=== PATIENT | male | born 1950 | race Caucasian/White ===

== ENCOUNTER 2018-12-13 16:12 | Emergency (ER) | payer MEDICARE, MEDICAID ==
[2018-12-13] MEDS ORDERED: IPRATROPIUM/ALBUTEROL (0.5MG/3MG) NEB INH ONE (16:23)
[2018-12-13] MEDS ORDERED: PREDNISONE 20 MG TAB PO ONE (18:18)
[2018-12-13] MEDS ORDERED: DOXYCYCLINE HYCLATE 100 MG CAPSULE PO ONE (18:18)
[2018-12-13] MEDS ORDERED: ALBUTEROL SULFATE (0.083%) 2.5 MG/3 ML NEB INH ONE (18:21)
--- NOTE | 2018-12-13 18:25 | Emergency Department Record ---
History of Present Illness - General Chief Complaint: Cough Stated Complaint: "I think I have pneumonia" Time Seen by Provider: 12/13/18 18:11 Source: Patient Mode of Arrival: Ambulatory Limitations: No limitations - History of Present Illness Initial Comments: The patient is here due to a productive cough with a ST for almost 2 weeks. He has had mild SOB but denies any CP, fever, chills, or blood in the sputum. The patient has an extensive hx of tobacco use but no longer smokes regularly. He has had a thoracotomy for lung CA. MD Complaint: Cough, Nasal congestion, Rhinorrhea, Sore throat Onset/Timin -: Week(s) Consistency: Intermittent, Getting worse - Related Data Previous Rx's Medication Instructions Recorded Ipratropium/Albuterol Sulfate 1 - 2 puff IH QID #1 inh 02/17/16 [Combivent] Albuterol Sulfate [Proair Hfa] 2 puff IH QID PRN #1 inhaler 12/13/18 Doxycycline Monohydrate [Mondoxyne 100 mg PO BID 7 Days #14 capsule 12/13/18 Nl] Prednisone [Prednisone 20Mg] 40 mg PO DAILY #10 tab 12/13/18 Allergies Allergy/AdvReac Type Severity Reaction Status Date / Time lidocaine AdvReac HYPERSENSIT Verified 12/13/18 16:21 IVITY Travel Screening - Travel/Exposure Within Last 30 Days Have you traveled within the last 30 days?: No - Travel/Exposure Within Last Year Have you traveled outside the [place] in the last year?: No - Additonal Travel Details Have you been exposed to anyone with a communicable illness?: No - Travel Symptoms Symptom Screening: None Review of Systems Constitutional: Reports: Malaise. Denies: Chills, Fever Eyes: Denies: Eye discharge ENT: Reports: Congestion Respiratory: Reports: Cough, Dyspnea. Denies: Hemoptysis, Wheezes Cardiovascular: Denies: Arrhythmia, Chest pain Endocrine: Reports: Fatigue Gastrointestinal: Denies: Nausea Genitourinary: Denies: Dysuria Musculoskeletal: Denies: Back pain Skin: Denies: Bruising Past Medical History - SOCIAL HISTORY Smoking Status: Current every day smoker Alcohol Use: None Drug Use: Occasional Drug Use Detail:: Marijuana - RESPIRATORY Hx Respiratory Disorders: Yes Hx COPD: Yes - CARDIOVASCULAR Hx Cardio Disorders: No - NEURO Hx Neuro Disorders: No - GI Hx GI Disorders: No - Hx Genitourinary Disorders: No - ENDOCRINE Hx Endocrine Disorders: No Hx Diabetes: No Hx Thyroid Disease: No - MUSCULOSKELETAL Hx Musculoskeletal Disorders: Yes - PSYCH Hx Psych Problems: Yes Hx Anxiety: Yes Hx Depression: Yes - HEMATOLOGY/ONCOLOGY Hx Hematology/Oncology Disorders: Yes Hx Blood Disorders: Yes Hx Chemotherapy: Yes Hx Radiation Therapy: Yes Family Medical History Any Significant Family History?: No Physical Exam - General General Appearance: Alert, Oriented x3, Cooperative, No acute distress (The patient is speaking in full sentences with no difficulty. There are no retractions or accessory muscle use.) - Head Head exam: Atraumatic, Normocephalic, Normal inspection - Eye Eye exam: Normal appearance, PERRL - ENT Throat exam: Normal inspection. negative: Tonsillar erythema, Tonsillar exudate - Neck Neck exam: Normal inspection, Full ROM. negative: Tenderness - Respiratory Respiratory exam: Decreased breath sounds, Wheezes (minimally in the lower lobes.). negative: Normal lung sounds bilaterally - Cardiovascular Cardiovascular Exam: Regular rate, Normal rhythm, Normal heart sounds - GI/Abdominal GI/Abdominal exam: Soft, Normal bowel sounds. negative: Tenderness - Extremities Extremities exam: Normal inspection, Full ROM, Normal capillary refill. negative: Tenderness - Neurological Neurological exam: Alert, Normal gait, Oriented X3. negative: Abnormal gait, Motor sensory deficit - Psychiatric Psychiatric exam: negative: Anxious Course Vital Signs 12/13/18 12/13/18 12/13/18 16:23 16:28 17:25 Temperature 97.6 F Pulse Rate 100 H 104 H Pulse Rate [ 107 H Pulse Ox Probe] Respiratory 22 20 20 Rate Blood Pressure 168/102 Blood Pressure 161/106 [Left Arm] Pulse Ox 94 L 94 L 92 L 12/13/18 18:00 Temperature Pulse Rate Pulse Rate [ 75 Pulse Ox Probe] Respiratory 22 Rate Blood Pressure Blood Pressure 148/103 [Left Arm] Pulse Ox - Reevaluation(s) Reevaluation #1: The patient is feeling much better after the 2nd albuterol treatment. He is speaking in full sentences and is up walking with no difficulty and no SOB. On exam his lungs have improved aeration with no wheezing. I did explain to the patient the need for F/U with his PCP. 12/13/18 18:41 Medical Decision Making - Data Complexity MDM Data: X-Ray Ordered and/or Reviewed - Radiology Data Radiology results: Report reviewed (CXR: subtle bilateral early middly lobe infiltrates.) Disposition Disposition: Discharge Clinical Impression: Pneumonia Qualifiers: Pneumonia type: due to unspecified organism Laterality: unspecified laterality Lung location: unspecified part of lung Qualified Code(s): J18.9 - Pneumonia, unspecified organism Disposition: Home, Self-Care Condition: (2) Stable Instructions: Pneumonitis (ED) Additional Instructions: Please continue your oral antibiotics and Prednisone as directed and continue your inhallers. Please see your family doctor later this week for recheck. Return to the ER for any worsening symptoms, any SOB, fever, or dyspnea. Prescriptions: Doxycycline Monohydrate [Mondoxyne Nl] 100 mg PO BID 7 Days #14 capsule Prednisone [Prednisone 20Mg] 40 mg PO DAILY #10 tab Albuterol Sulfate [Proair Hfa] 2 puff IH QID PRN #1 inhaler PRN Reason: Cough And Difficulty Breathing Forms: Patient Portal Access Time of Disposition: 18:44 Quality - Quality Measures Quality Measures: N/A - Blood Pressure Screening View Details: Yes Does Patient Have Any of the Following: No Blood Pressure Classification: Hypertensive Reading Systolic Measurement: 149 Diastolic Measurement: 101 Screening for High Blood Pressure: < First Hypertensive BP, F/U Documented > [G8950] First Hypertensive Follow-up Interventions: Referral to alternative/primary care provider.
--- NOTE | 2018-12-14 09:45 | RADIOLOGY REPORT ---
EXAM: CHEST, TWO VIEWS HISTORY: COUGH FOR THE PAST TWO WEEKS. TECHNIQUE: PA and lateral upright views of the chest were obtained. Comparison: 02/17/16. FINDINGS: The heart is normal in size. Surgical clips are present within the right hilum. The mediastinum and pulmonary vasculature are normal. The lungs are hyperinflated consistent with COPD. There are patchy infiltrates within the mid lung ding bilaterally, right greater than left. These have a slightly nodular configuration and follow-up is recommended to confirm clearing. There is no pneumothorax or visible effusion. The bones appear intact. IMPRESSION: 1. PATCHY INFILTRATES WITHIN THE MID LUNG DING BILATERALLY, RIGHT GREATER THAN LEFT. FOLLOW-UP IS RECOMMENDED TO CONFIRM CLEARING. 2. COPD. JOB NUMBER: [id number] [facility]
== END 2018-12-13 18:51 | disposition home or self-care (01) ==
LOC: ER 16:12
DX: J18.9 Pneumonia, unspecified organism (principal); R06.02 Shortness of breath; J44.9 Chronic obstructive pulmonary disease, unspecified; F17.210 Nicotine dependence, cigarettes, uncomplicated; Z85.118 Personal history of other malignant neoplasm of bronchus and lung
CPT/HCPCS: 99283; 99284; 71046; 94640 ×2; J7512; J7613

== ENCOUNTER 2019-02-25 15:12 | Emergency (ER) | payer MEDICARE, MEDICAID ==
[2019-02-25] MEDS ORDERED: IPRATROPIUM/ALBUTEROL (0.5MG/3MG) NEB INH ONE (15:53)
[2019-02-25] MEDS ORDERED: METHYLPREDNISOLONE PF 125MG/VIAL IVP ONE (15:53)
[2019-02-25 16:14] LABS: ABSOLUTE NEUTROPHIL COUNT 5.12; HEMATOCRIT 46.5 % (42.0-52.0); HEMOGLOBIN 14.8 gm/dl (14.0-18.0); MEAN CELL VOLUME 89.8 fl (81-97); MEAN CORPUSCULAR HEMOGLOBIN 28.6 pg (27-33); MEAN CORPUSCULAR HGB CONC 31.8 g/dl (32-36); PLATELET COUNT 243 K/uL (130-400); RED BLOOD COUNT 5.18 M/uL (4.40-5.70); RED CELL DISTRIBUTION WIDTH 15.3 % (11.5-14.5)
--- NOTE | 2019-02-25 16:17 | Emergency Department Record ---
History of Present Illness - General Chief Complaint: Shortness of breath Stated Complaint: SOB Time Seen by Provider: 02/25/19 15:53 Source: Patient Mode of Arrival: Ambulatory Limitations: No limitations - History of Present Illness Initial Comments: Pt to the ED for issues with difficulty breathing. Pt is a smoker who smokes "occasional cigarettes and marijuana medically". He has never been dx with COPD. Pt states if he walks to the bathroom and back he has severe THOR and it takes him 10-15 minutes to recover. He uses his nebulizer with albuterol and that helps. Pt has hx of lung cancer in 1999 with right upper lobe resection and follow up radiation. He did well with that. 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 He is in remission. He denies anterior CP with symptoms, no nausea, no fever. He has non productive cough. Pt has not seen a doctor for this issue. -: Unknown Severity scale (1-10): 3 Quality: Aching Known History Of: Other - Related Data Previous Rx's Medication Instructions Recorded Albuterol Sulfate [Proair Hfa] 2 puff IH QID PRN #1 inhaler 12/13/18 Doxycycline Monohydrate 100 mg PO BID 7 Days #14 capsule 02/25/19 Ipratropium/Albuterol Sulfate 1 - 2 puff IH QID #1 inh 02/25/19 [Combivent] Prednisone [Prednisone 20Mg] 20 mg PO DAILY 6 Days #9 tab 02/25/19 Allergies Allergy/AdvReac Type Severity Reaction Status Date / Time lidocaine AdvReac HYPERSENSIT Verified 12/13/18 16:21 IVITY Travel Screening - Travel/Exposure Within Last 30 Days Have you traveled within the last 30 days?: No - Travel/Exposure Within Last Year Have you traveled outside the [place] in the last year?: No - Additonal Travel Details Have you been exposed to anyone with a communicable illness?: No - Travel Symptoms Symptom Screening: None Review of Systems Constitutional: Denies: Chills, Fever, Weakness Eyes: Denies: Eye discharge, Photophobia ENT: Reports: Congestion. Denies: Ear pain, Throat pain Respiratory: Reports: As per HPI, Cough, Dyspnea, Wheezes. Denies: Stridor Cardiovascular: Reports: Dyspnea on exertion. Denies: Arrhythmia, Chest pain, Syncope Endocrine: Reports: Fatigue. Denies: Polydipsia Gastrointestinal: Denies: Abdominal pain, Diarrhea, Melena, Nausea, Vomiting Musculoskeletal: Denies: Arthralgia, Back pain Skin: Denies: Bruising Neurological: Denies: Abnormal gait, Headache, Weakness Psychiatric: Denies: Anxiety Hematological/Lymphatic: Denies: Anemia Past Medical History - SOCIAL HISTORY Smoking Status: Light tobacco smoker (<10/day) Alcohol Use: None Drug Use: Rare Drug Use Detail:: Marijuana - RESPIRATORY Hx Respiratory Disorders: Yes Hx COPD: Yes - CARDIOVASCULAR Hx Cardio Disorders: No - NEURO Hx Neuro Disorders: No - GI Hx GI Disorders: No - Hx Genitourinary Disorders: No - ENDOCRINE Hx Endocrine Disorders: No Hx Diabetes: No Hx Thyroid Disease: No - MUSCULOSKELETAL Hx Musculoskeletal Disorders: Yes - PSYCH Hx Psych Problems: Yes Hx Anxiety: Yes Hx Depression: Yes - HEMATOLOGY/ONCOLOGY Hx Hematology/Oncology Disorders: Yes Hx Blood Disorders: Yes Hx Chemotherapy: Yes Hx Radiation Therapy: Yes Comment:: leukiemia Family Medical History Any Significant Family History?: No Physical Exam - General General Appearance: Alert, Oriented x3, Cooperative, No acute distress - Head Head exam: Atraumatic - Eye Eye exam: Normal appearance, PERRL - ENT ENT exam: Normal exam, Mucous membranes moist, Normal external ear exam, Normal orophraynx, TM's normal bilaterally - Neck Neck exam: Normal inspection, Full ROM. negative: Tenderness - Respiratory Respiratory exam: Decreased breath sounds, Prolonged expiratory. negative: Accessory muscle use, Chest wall tenderness, Respiratory distress, Rhonchi, Wheezes - Cardiovascular Cardiovascular Exam: Regular rate, Normal rhythm, Normal heart sounds. negative: Tachycardia Peripheral Pulses: 2+: Radial (R), Radial (L) - GI/Abdominal GI/Abdominal exam: Soft, Normal bowel sounds. negative: Tenderness - Extremities Extremities exam: Normal inspection, Full ROM, Normal capillary refill. negative: Tenderness - Back Back exam: Reports: Normal inspection, Full ROM. Denies: Muscle spasm, Rash noted, Tenderness - Neurological Neurological exam: Alert, Normal gait, Oriented X3 - Psychiatric Psychiatric exam: Normal affect, Normal mood - Skin Skin exam: Normal color. negative: Rash Course Vital Signs 02/25/19 15:15 Temperature 98.4 F Pulse Rate 84 Respiratory 20 Rate Blood Pressure 139/84 Pulse Ox 97 - Reevaluation(s) Reevaluation #1: 02/25/19 16:16 seen and exam. IV steroids and duoneb neb. CXR/EKG/Labs ordered. Pt at first did not want testing or work up...just to feel better. He agrees after discussion. Reevaluation #2: 02/25/19 16:59 Much better with treatments. Discussed care and stopping smoking. 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 Procedures - EKG Initial Date: 02/25/19 Time: 16:17 EKG: Abnormal EKG EKG Detail: SR 89 with L axsis. No ST elevations. Medical Decision Making - Lab Data Result diagrams: 02/25/19 16:05 02/25/19 16:05 Disposition Disposition: Discharge Clinical Impression: COPD exacerbation, Chronic leukemia Disposition: Home, Self-Care Condition: (2) Stable Instructions: COPD (Chronic Obstructive Pulmonary Disease) (ED), How to Stop Smoking (ED) Additional Instructions: Use inhaler as instructed. Take steroids and antibiotic as instructed. STOP SMOKING> See your Family Doctor in 2-3 days. Return to the ED as needed. Prescriptions: Ipratropium/Albuterol Sulfate [Combivent] 1 - 2 puff IH QID #1 inh Doxycycline Monohydrate 100 mg PO BID 7 Days #14 capsule Prednisone [Prednisone 20Mg] 20 mg PO DAILY 6 Days #9 tab Forms: Patient Portal Access Quality - Quality Measures Quality Measures: N/A - Blood Pressure Screening Does Patient Have Any of the Following: No Blood Pressure Classification: Pre-Hypertensive BP Reading Systolic Measurement: 139 Diastolic Measurement: 84 Screening for High Blood Pressure: < Pre-Hypertensive BP, F/U Documented > [G8950] Pre-Hypertensive Follow-up Interventions: Follow-up with rescreen every year.
[2019-02-25 16:20] LABS: WHITE BLOOD COUNT W/O DIFF 22.1 K/uL (4.2-12.2)
[2019-02-25 16:27] LABS: BLOOD UREA NITROGEN 13 mg/dL (8-23); CREATININE 1.1 mg/dL (0.7-1.2); EST GLOMERULAR FILTRATION RATE > 60 mL/min
[2019-02-25 16:30] LABS: GLUCOSE,RANDOM 96 mg/dL (74-109)
[2019-02-25 16:32] LABS: PLATELET ESTIMATE NORMAL (NORMAL)
--- NOTE | 2019-02-26 14:17 | RADIOLOGY REPORT ---
EXAM: CHEST, TWO VIEWS HISTORY: RIGHT LUNG CANCER. DIFFICULTY BREATHING. TECHNIQUE: Two views of the chest are obtained. Comparison: 12/13/18. FINDINGS: The heart is of normal size. The lungs are clear of any acute infiltrate, pleural effusion or pneumothorax. No indication of any new or enlarging pulmonary nodule. Skeletal structures show no suspicious rib findings or clavicle findings. The thoracic spine is unremarkable. The sternum is unremarkable. IMPRESSION: NO SIGN OF ACUTE CHEST PATHOLOGY. JOB NUMBER: [id number] [facility]
== END 2019-02-25 17:32 | disposition home or self-care (01) ==
LOC: ER 15:12
DX: J44.1 Chronic obstructive pulmonary disease with (acute) exacerbation (principal); F17.210 Nicotine dependence, cigarettes, uncomplicated; C91.11 Chronic lymphocytic leukemia of B-cell type in remission; Z85.118 Personal history of other malignant neoplasm of bronchus and lung
CPT/HCPCS: 71046; 80048; 85027; 85379; 93005; 93010; 94640; 96374; 99284; J2930

== ENCOUNTER 2019-05-04 09:24 | Emergency (ER) | payer MEDICARE, MEDICAID ==
[2019-05-04] MEDS ORDERED: IPRATROPIUM/ALBUTEROL (0.5MG/3MG) NEB INH ONE (09:43)
[2019-05-04] MEDS ORDERED: PREDNISONE 20 MG TAB PO ONE (09:47)
--- NOTE | 2019-05-04 09:49 | Emergency Department Record ---
History of Present Illness - General Chief Complaint: Shortness of breath Stated Complaint: THOR Time Seen by Provider: 05/04/19 09:41 Source: Patient Mode of Arrival: Ambulatory Limitations: No limitations - History of Present Illness Initial Comments: Pt to ED with one day of THOR at home. Pt is know to have COPD and "quit smoking 3 months ago". No fever, +cough that is non productive. He notes wheezing. Pt used his Combivent and albuterol inhalers with brief relief. Not taking Prednisone at this time. No CP, edema of legs, AHUMADA, weakness. No prior treatment. Onset/Timin -: Days(s) Radiation: Other Severity scale (1-10): 4 Quality: Other Consistency: Constant Improves With: Nothing Worsens With: Nothing Known History Of: COPD Associated Symptoms: Denies other symptoms Treatments Prior to Arrival: Bronchodilator - Related Data Home Oxygen Therapy: No Home Medications Medication Instructions Recorded Confirmed Last Taken Albuterol Sulfate [Ventolin Hfa] 1 puff IH ASDIR 05/04/19 05/04/19 Unknown Previous Rx's Medication Instructions Recorded Azithromycin [Zithromax Tri-Karan] 500 mg PO DAILY 3 Days #6 tablet 05/04/19 Ipratropium/Albuterol Sulfate 1 - 2 puff IH QID 10 Days #1 inh 05/04/19 [Combivent] Prednisone [Prednisone 20Mg] 40 mg PO DAILY 5 Days #10 tab 05/04/19 Allergies Allergy/AdvReac Type Severity Reaction Status Date / Time lidocaine AdvReac HYPERSENSIT Unverified 04/13/19 14:03 IVITY Travel Screening - Travel/Exposure Within Last 30 Days Have you traveled within the last 30 days?: No Review of Systems Constitutional: Denies: Chills, Fever, Malaise, Weakness Eyes: Denies: Eye discharge, Photophobia ENT: Denies: Congestion, Ear pain, Throat pain Respiratory: Reports: As per HPI, Cough, Wheezes. Denies: Dyspnea, Hemoptysis Cardiovascular: Denies: Arrhythmia, Chest pain, Palpitations, Syncope Endocrine: Denies: Fatigue Gastrointestinal: Denies: Abdominal pain, Diarrhea, Nausea, Vomiting Musculoskeletal: Denies: Arthralgia, Back pain Skin: Denies: Bruising, Rash Neurological: Denies: Confusion, Headache, Tingling Psychiatric: Denies: Anxiety, Suicidal thoughts Hematological/Lymphatic: Denies: Anemia Past Medical History - SOCIAL HISTORY Smoking Status: Light tobacco smoker (<10/day) - RESPIRATORY Hx Respiratory Disorders: Yes Hx COPD: Yes - CARDIOVASCULAR Hx Cardio Disorders: No - NEURO Hx Neuro Disorders: No - GI Hx GI Disorders: No - Hx Genitourinary Disorders: No - ENDOCRINE Hx Endocrine Disorders: No Hx Diabetes: No Hx Thyroid Disease: No - MUSCULOSKELETAL Hx Musculoskeletal Disorders: Yes - PSYCH Hx Psych Problems: Yes Hx Anxiety: Yes Hx Depression: Yes - HEMATOLOGY/ONCOLOGY Hx Hematology/Oncology Disorders: Yes Hx Blood Disorders: Yes Hx Chemotherapy: Yes Hx Radiation Therapy: Yes Comment:: leukiemia Family Medical History Any Significant Family History?: No Physical Exam - General General Appearance: Alert, Oriented x3, Cooperative, Mild distress - Head Head exam: Atraumatic - Eye Eye exam: Normal appearance, PERRL, EOMI - ENT ENT exam: Mucous membranes moist, Normal orophraynx Ear exam: Normal external inspection Nasal Exam: Normal inspection Mouth exam: Normal external inspection - Neck Neck exam: Normal inspection, Full ROM. negative: Lymphadenopathy, Tenderness - Respiratory Respiratory exam: Decreased breath sounds, Prolonged expiratory, Rhonchi, Wheezes. negative: Chest wall tenderness, Rales, Respiratory distress - Cardiovascular Cardiovascular Exam: Regular rate, Normal rhythm. negative: Tachycardia Peripheral Pulses: 2+: Radial (R), Radial (L) - GI/Abdominal GI/Abdominal exam: Soft, Normal bowel sounds. negative: Guarding, Rebound, Tenderness - Extremities Extremities exam: Normal inspection, Full ROM. negative: Calf tenderness, Pedal edema, Tenderness - Back Back exam: Denies: Paraspinal tenderness - Neurological Neurological exam: Alert, Normal gait, Oriented X3 - Psychiatric Psychiatric exam: Normal affect, Normal mood - Skin Skin exam: Normal color. negative: Cyanosis, Rash Course Vital Signs 05/04/19 09:27 Temperature 98.1 F Pulse Rate 96 H Respiratory 20 Rate Blood Pressure 162/107 Pulse Ox 98 - Reevaluation(s) Reevaluation #1: 05/04/19 09:48 Seen with THOR but not in distress. CXR and treatments in ED. Reevaluation #2: 05/04/19 10:38 Improved with RT in ED. Lungs with good exchange, no wheeze. CXR not acute. Home with meds and inhaler. Steroids and Zithromax. Instructed on use of spacer by RT. Medical Decision Making - Data Complexity MDM Data: X-Ray Ordered and/or Reviewed, Independent Visualization of Image, Tracing, or Specimen - Radiology Data Radiology results: Image reviewed -: Radiology Exam Interpreted by Myself No acute infiltrate or pneumothorax Disposition Disposition: Discharge Clinical Impression: COPD exacerbation, Cough Disposition: Home, Self-Care Condition: (2) Stable Instructions: COPD (Chronic Obstructive Pulmonary Disease) (ED) Additional Instructions: Use your inhalers as instructed with spacer! See you family doctor as scheduled. Return to the ED at any time if worse Prescriptions: Ipratropium/Albuterol Sulfate [Combivent] 1 - 2 puff IH QID 10 Days #1 inh Prednisone [Prednisone 20Mg] 40 mg PO DAILY 5 Days #10 tab Azithromycin [Zithromax Tri-Karan] 500 mg PO DAILY 3 Days #6 tablet Forms: Patient Portal Access Time of Disposition: 10:37 Quality - Quality Measures Quality Measures: N/A - Blood Pressure Screening Does Patient Have Any of the Following: No Blood Pressure Classification: Hypertensive Reading Systolic Measurement: 162 Diastolic Measurement: 107 Screening for High Blood Pressure: < Pre-Hypertensive BP, F/U Documented > [G8950] Pre-Hypertensive Follow-up Interventions: Follow-up with rescreen every year.
[2019-05-05] MEDS ORDERED: PREDNISONE 20 MG TAB PO SCH (08:00)
--- NOTE | 2019-05-06 08:53 | RADIOLOGY REPORT ---
EXAM: CHEST, TWO VIEWS HISTORY: RIGHT SIDED CHEST PAIN FOR A FEW WEEKS, DIFFICULTY IN BREATHING. TECHNIQUE: Two views of the chest were obtained. Comparison: Prior chest x-ray 04/02/19. FINDINGS: The cardiomediastinal silhouette appears stable. Mild hyperaeration changes are present. Stable mild blunting of the right greater than left costophrenic angles are present. No acute consolidation. Chronic appearing interstitial markings. No pneumothorax is identified. Surgical clips are noted overlying the region of the right apex. Mild right apical pleural thickening present. Stable appearing small nodule left lateral aortic knob. IMPRESSION: 1. HYPERAERATION CHANGES SIMILAR TO PRIOR, CHRONIC CHANGES UNCHANGED. 2. NO ACUTE CARDIOPULMONARY PROCESS IDENTIFIED. JOB NUMBER: [id number] [facility]
== END 2019-05-04 10:49 | disposition home or self-care (01) ==
LOC: ER 09:24
DX: J44.1 Chronic obstructive pulmonary disease with (acute) exacerbation (principal); R06.00 Dyspnea, unspecified; F17.210 Nicotine dependence, cigarettes, uncomplicated
CPT/HCPCS: 71046; 94640; 99284; J7512

== ENCOUNTER 2019-06-08 15:56 | Emergency (ER) | payer MEDICARE, MEDICAID ==
[2019-06-08] MEDS ORDERED: FUROSEMIDE 20 MG TABLET PO ONE (17:13)
--- NOTE | 2019-06-08 17:35 | Emergency Department Record ---
History of Present Illness - General Chief Complaint: Shortness of breath Stated Complaint: THOR Time Seen by Provider: 06/08/19 16:11 Source: Patient Mode of Arrival: Ambulatory Limitations: No limitations - History of Present Illness Initial Comments: pt was sent here because he has a wbc of 29.6 on a lab ordered yesterday by dr abreu, pulmonology, for possible admission or transfer MD Complaint: Shortness of breath Onset/Timin -: Days(s) Improves With: Nothing Worsens With: Nothing Known History Of: COPD - Related Data Allergies Allergy/AdvReac Type Severity Reaction Status Date / Time lidocaine AdvReac HYPERSENSIT Verified 06/08/19 16:31 IVITY Travel Screening - Travel/Exposure Within Last 30 Days Have you traveled within the last 30 days?: No - Travel/Exposure Within Last Year Have you traveled outside the [place] in the last year?: No - Additonal Travel Details Have you been exposed to anyone with a communicable illness?: No Review of Systems Reviewed: No additional complaints except as noted below Constitutional: Reports: As per HPI. Denies: Chills, Fever, Malaise, Night sweats, Weakness, Weight change Eyes: Reports: As per HPI. Denies: Eye discharge, Eye pain, Photophobia, Vision change ENT: Reports: As per HPI. Denies: Congestion, Dental pain, Ear pain, Epistaxis, Hearing loss, Throat pain Respiratory: Reports: As per HPI. Denies: Cough, Dyspnea, Hemoptysis, Stridor, Wheezes Cardiovascular: Reports: As per HPI. Denies: Arrhythmia, Chest pain, Dyspnea on exertion, Edema, Murmurs, Orthopnea, Palpitations, Paroxysmal nocturnal dyspnea, Rheumatic Fever, Syncope Endocrine: Reports: As per HPI. Denies: Fatigue, Heat or cold intolerance, Polydipsia, Polyuria Gastrointestinal: Reports: As per HPI. Denies: Abdominal pain, Constipation, Diarrhea, Hematemesis, Hematochezia, Melena, Nausea, Vomiting Genitourinary: Reports: As per HPI. Denies: Dysuria, Frequency, Hematuria, Incontinence, Retention, Testicular pain, Testicular mass, Urgency Musculoskeletal: Reports: As per HPI. Denies: Arthralgia, Back pain, Gout, Joint swelling, Myalgia, Neck pain Skin: Reports: As per HPI. Denies: Bruising, Change in color, Change in hair/nails, Lesions, Pruritus, Rash Neurological: Reports: As per HPI. Denies: Abnormal gait, Confusion, Headache, Numbness, Paresthesias, Seizure, Tingling, Tremors, Vertigo, Weakness Psychiatric: Reports: As per HPI. Denies: Anxiety, Auditory hallucinations, Depression, Homicidal thoughts, Suicidal thoughts, Visual hallucinations Hematological/Lymphatic: Reports: As per HPI. Denies: Anemia, Blood Clots, Easy bleeding, Easy bruising, Swollen glands Past Medical History - SOCIAL HISTORY Smoking Status: Former smoker Alcohol Use: None Drug Use: None - RESPIRATORY Hx Respiratory Disorders: Yes Hx COPD: Yes - CARDIOVASCULAR Hx Cardio Disorders: No - NEURO Hx Neuro Disorders: No - GI Hx GI Disorders: No - Hx Genitourinary Disorders: No - ENDOCRINE Hx Endocrine Disorders: No Hx Diabetes: No Hx Thyroid Disease: No - MUSCULOSKELETAL Hx Musculoskeletal Disorders: Yes - PSYCH Hx Psych Problems: Yes Hx Anxiety: Yes Hx Depression: Yes - HEMATOLOGY/ONCOLOGY Hx Hematology/Oncology Disorders: Yes Hx Blood Disorders: Yes Hx Chemotherapy: Yes Hx Radiation Therapy: Yes Comment:: leukiemia Family Medical History Any Significant Family History?: No Physical Exam - General General Appearance: Alert, Oriented x3, Cooperative, No acute distress - Head Head exam: Normal inspection - Eye Eye exam: Normal appearance, PERRL, EOMI Pupils: Normal accommodation - ENT ENT exam: Normal exam, Mucous membranes moist, Normal external ear exam, Normal orophraynx, TM's normal bilaterally Ear exam: Normal external inspection. negative: External canal tenderness Nasal Exam: Normal inspection. negative: Discharge, Sinus tenderness Mouth exam: Normal external inspection, Tongue normal Teeth exam: Normal inspection. negative: Dental caries Throat exam: Normal inspection. negative: Tonsillar erythema, Tonsillar exudate - Neck Neck exam: Normal inspection, Full ROM. negative: Tenderness - Respiratory Respiratory exam: Normal lung sounds bilaterally, Wheezes (slight). negative: Respiratory distress - Cardiovascular Cardiovascular Exam: Regular rate, Normal rhythm, Normal heart sounds - GI/Abdominal GI/Abdominal exam: Soft, Normal bowel sounds. negative: Tenderness - Rectal Rectal exam: Deferred - exam: Deferred - Extremities Extremities exam: Normal inspection, Full ROM, Normal capillary refill, Pedal edema. negative: Tenderness - Back Back exam: Reports: Normal inspection, Full ROM. Denies: Muscle spasm, Rash noted, Tenderness - Neurological Neurological exam: Alert, Normal gait, Oriented X3, Reflexes normal - Psychiatric Psychiatric exam: Normal affect, Normal mood - Skin Skin exam: Dry, Intact, Normal color, Warm Course Vital Signs 06/08/19 16:19 Temperature 97.4 F L Pulse Rate 54 L Respiratory 24 Rate Blood Pressure 149/101 Pulse Ox 96 - Reevaluation(s) Reevaluation #1: 06/08/19 17:33 pt was d/w dr abreu who initially wanted pt transferred to [facility] but then changed his mind when he realized the pt has cll. Disposition Disposition: Discharge Clinical Impression: CLL (chronic lymphocytic leukemia), Pedal edema COPD (chronic obstructive pulmonary disease) Qualifiers: COPD type: unspecified COPD Qualified Code(s): J44.9 - Chronic obstructive pulmonary disease, unspecified Disposition: Home, Self-Care Condition: (1) Good Instructions: COPD (Chronic Obstructive Pulmonary Disease) (ED) Additional Instructions: ffollow up with family doctor. return sooner if worse. follow up with pulmonology and hematology Quality - Quality Measures Quality Measures: N/A - Blood Pressure Screening Does Patient Have Any of the Following: Active Dx of HTN Blood Pressure Classification: Hypertensive Reading Systolic Measurement: 149 Diastolic Measurement: 101 Screening for High Blood Pressure: Patient Exclusion, Hx of HTN [G9744]
== END 2019-06-08 17:44 | disposition home or self-care (01) ==
LOC: ER 15:56
DX: C91.10 Chronic lymphocytic leukemia of B-cell type not having achieved remission (principal); J44.9 Chronic obstructive pulmonary disease, unspecified; R60.9 Edema, unspecified; I10 Essential (primary) hypertension; Z87.891 Personal history of nicotine dependence
CPT/HCPCS: 99284

== ENCOUNTER 2019-06-14 04:48 | Emergency (ER) | payer MEDICARE, MEDICAID ==
[2019-06-14 05:20] LABS: HEMOGLOBIN 13.4 gm/dl (14.0-18.0); MEAN CELL VOLUME 90.3 fl (81-97); MEAN CORPUSCULAR HEMOGLOBIN 27.5 pg (27-33); MEAN CORPUSCULAR HGB CONC 30.5 g/dl (32-36); MEAN PLATELET VOLUME 9.6 fl (7.4-10.4); PLATELET COUNT 278 K/uL (130-400); RED BLOOD COUNT 4.87 M/uL (4.40-5.70); RED CELL DISTRIBUTION WIDTH 16.2 % (11.5-14.5)
--- NOTE | 2019-06-14 05:26 | Emergency Department Record ---
History of Present Illness - General Chief Complaint: Shortness of breath Stated Complaint: SHORTNESS OF BREATH Time Seen by Provider: 06/14/19 04:55 Source: Patient, Family (Son) Mode of Arrival: Ambulatory Limitations: No limitations - History of Present Illness Initial Comments: Pt from Home with his son with complaint of difficulty with breathing and swelling to the ankles. Pt states over the past "week or so" he has noted increase in swelling to his feet and now hands. He is short of breath with minimal exertion. Pt unable to lay flat to sleep and has sat up in the chair this evening unable to sleep. He presents to the ED at 5AM and has not been sleeping. He denies CP. There is no fever but he does have a cough with "thick stuff" without blood or color. He is a life time smoker that "totally quit" 5 months ago. He recently has begun seeing CATHERINE Maldonado at the clinic and has seen Pulmonary in the clinic. Diagnosed with COPD within the last year and on inhalers at home for this. He is on no new meds. He states he has a history of HTN but "nobody put me on any meds". He has know CLL treated with chemotherapy in and has a history of lung cancer with lobectomy of the RUL in with follow up radiation therapy. . No current cancer treatments. Onset/Timin -: Month(s) Radiation: Back Severity: Moderate - Related Data Home Medications Medication Instructions Recorded Confirmed Last Taken Fluticasone/Vilanterol 200/25 1 puff INH DAILY 06/14/19 06/14/19 Unknown [Breo Ellipta 200-25 Mcg INH] Tiotropium [place] [Spiriva 1 cap INH DAILY 06/14/19 06/14/19 Unknown Respimat] Allergies Allergy/AdvReac Type Severity Reaction Status Date / Time lidocaine AdvReac HYPERSENSIT Verified 06/08/19 16:31 IVITY Travel Screening - Travel/Exposure Within Last 30 Days Have you traveled within the last 30 days?: No - Travel/Exposure Within Last Year Have you traveled outside the [place] in the last year?: No - Additonal Travel Details Have you been exposed to anyone with a communicable illness?: No - Travel Symptoms Symptom Screening: None Review of Systems Constitutional: Reports: Weight change. Denies: Chills, Fever, Night sweats Eyes: Denies: Eye discharge, Photophobia ENT: Denies: Congestion, Dental pain, Throat pain Respiratory: Reports: As per HPI, Cough, Dyspnea. Denies: Hemoptysis, Wheezes Cardiovascular: Reports: As per HPI. Denies: Chest pain, Palpitations, Syncope Endocrine: Denies: Fatigue, Polyuria Gastrointestinal: Denies: Abdominal pain, Diarrhea, Nausea, Vomiting Genitourinary: Denies: Dysuria, Hematuria Musculoskeletal: Denies: Arthralgia Skin: Denies: Bruising Neurological: Denies: Headache, Tingling Psychiatric: Denies: Anxiety Hematological/Lymphatic: Reports: As per HPI (hx Chronic Lymphocytic Leukemia ) Past Medical History - SOCIAL HISTORY Smoking Status: Former smoker Alcohol Use: None Drug Use Detail:: Marijuana - RESPIRATORY Hx Respiratory Disorders: Yes Hx COPD: Yes - CARDIOVASCULAR Hx Cardio Disorders: No - NEURO Hx Neuro Disorders: No - GI Hx GI Disorders: No - Hx Genitourinary Disorders: No - ENDOCRINE Hx Endocrine Disorders: No Hx Diabetes: No Hx Thyroid Disease: No - MUSCULOSKELETAL Hx Musculoskeletal Disorders: Yes - PSYCH Hx Psych Problems: Yes Hx Anxiety: Yes Hx Depression: Yes - HEMATOLOGY/ONCOLOGY Hx Hematology/Oncology Disorders: Yes Hx Blood Disorders: Yes Hx Chemotherapy: Yes Hx Radiation Therapy: Yes Comment:: leukiemia Family Medical History Any Significant Family History?: Yes Physical Exam - General General Appearance: Alert, Oriented x3, Cooperative, Moderate distress Limitations: No limitations - Head Head exam: Atraumatic, Normal inspection - Eye Eye exam: Normal appearance, PERRL - ENT ENT exam: Mucous membranes moist Ear exam: Normal external inspection Nasal Exam: Normal inspection Mouth exam: Normal external inspection Throat exam: Normal inspection - Neck Neck exam: Normal inspection, Full ROM. negative: Lymphadenopathy, Tenderness - Respiratory Respiratory exam: Decreased breath sounds, Rales, Respiratory distress, Rhonchi. negative: Wheezes - Cardiovascular Cardiovascular Exam: Regular rate, Normal rhythm. negative: Diastolic murmur, Systolic murmur, Tachycardia Peripheral Pulses: 2+: Radial (R), Radial (L) - GI/Abdominal GI/Abdominal exam: Soft, Normal bowel sounds. negative: Tenderness - Extremities Extremities exam: Full ROM, Pedal edema. negative: Calf tenderness, Tenderness (pitting edema above knees bilateral with mild edema of the hands) - Back Back exam: Reports: Normal inspection - Neurological Neurological exam: Alert, CN II-XII intact, Oriented X3 - Psychiatric Psychiatric exam: Normal affect, Normal mood - Skin Skin exam: Cyanosis (on arrival fingers and nose with cyanosis) Course Vital Signs 06/14/19 04:57 Pulse Rate [ 112 H Pulse Ox Probe] Respiratory 28 H Rate Blood Pressure 149/105 [Left Arm] Pulse Ox 97 - Reevaluation(s) Reevaluation #1: 06/14/19 05:29 Seen on arrival with elevated BP and cyanosis. Cyanosis resolved quickly with nasal O2 at 2L. PO unable to obtain on arrival, cold fingers, and up to 100% on on low flow O2. Pt feels better. Denies CP and EKG with ST elevations. Await CXR and labs. Reevaluation #2: 06/14/19 06:14 Pt with elevated BNP and slight increase Trop. ASA given. CXR unchanged from prior. BP elevated and improved with NTG paste. Spoke with aleisha Perla NP and requests transfer for cardiology care. Called [facility] - spoke with Dr. Pastor and he accepts after discussion of presentation and findings of CXR and labs. Aware of mild Trop increase. Accepts as CHF admission direct. EMS notified. Pt resting comfortably and aware of transfer. Son and pt agree. NO CP at this time. 06/14/19 06:18 Medical Decision Making - Management Options MDM Management: Additional Work-up Planned (e.g. ADM/Transfer/OP Study) - Data Complexity MDM Data: Labs Ordered and/or Reviewed, X-Ray Ordered and/or Reviewed, EKG Ordered and/or Reviewed, Independent Visualization of Image, Tracing, or Specimen, Decision to Obtain Old Record, Review and Summary of Old Record Discussed - Lab Data Result diagrams: 06/14/19 05:12 06/14/19 05:12 - EKG Data -: EKG Interpreted by Me EKG: No Acute Changes - Radiology Data Radiology results: Report reviewed, Image reviewed -: Radiology Exam Interpreted by Myself Critical Care Time Critical Care Time: Yes Total Critical Care Time: 60 (bedside monitoring of cyanosis, NTG, CHF ) Disposition Disposition: Transfer Clinical Impression: Chronic lymphocytic leukemia Congestive heart failure (CHF) Qualifiers: Heart failure type: unspecified Heart failure chronicity: acute Qualified Code(s): I50.9 - Heart failure, unspecified COPD (chronic obstructive pulmonary disease) Qualifiers: COPD type: unspecified COPD Qualified Code(s): J44.9 - Chronic obstructive pulmonary disease, unspecified Disposition: Acute Care Hospital Transfer Decision to Admit Date: 06/14/19 Decision to Admit Time: 06:24 Transfer To: [facility] Reason For Transfer: Need for cardiology Accepting Physician: Dr. Pastor Time Discussed w/Accepting Physician: 06:24 Condition: (3) Guarded Forms: Patient Portal Access Time of Disposition: :24 Quality - Quality Measures Quality Measures: N/A - Blood Pressure Screening Does Patient Have Any of the Following: No Blood Pressure Classification: Hypertensive Reading Systolic Measurement: 134 Diastolic Measurement: 97 Screening for High Blood Pressure: < Pre-Hypertensive BP, F/U Documented > [G8950] Pre-Hypertensive Follow-up Interventions: Referral to alternative/primary care provider.
[2019-06-14 05:27] LABS: WHITE BLOOD COUNT W/O DIFF 24.4 K/uL (4.2-12.2)
[2019-06-14 05:32] LABS: CREATININE 1.4 mg/dL (0.7-1.2)
[2019-06-14 05:33] LABS: BILIRUBIN,TOTAL 1.2 mg/dL (0.2-1.0); INR 1.1; PARTIAL THROMBOPLASTIN TIME 30.1 SECONDS (24.5-39.1); TOTAL PROTEIN 6.3 g/dL (6.6-8.7)
[2019-06-14] MEDS ORDERED: ALBUTEROL SULFATE (0.083%) 2.5 MG/3 ML NEB INH ONE (05:37)
[2019-06-14 05:38] LABS: ALBUMIN 4.2 g/dL (4.0-5.0)
[2019-06-14] MEDS ORDERED: FUROSEMIDE IV 40MG/4ML VIAL IVP ONE (05:44)
[2019-06-14] MEDS ORDERED: NITROGLYCERIN 0.4MG SL TABLET #25 BTL SL ONE ×2 (05:44)
[2019-06-14] MEDS ORDERED: NITROGLYCERIN 2% OINT 1GM PKT TOP ONE (05:46)
--- NOTE | 2019-06-14 05:47 | RADIOLOGY REPORT ---
EXAMINATION: Two View Chest Radiographs EXAM DATE: 06/14/2019 5:42 AM TECHNIQUE: Frontal and lateral views INDICATION: THOR COMPARISON: 05/04/2019 ENCOUNTER: Not applicable FINDINGS: The heart, mediastinum, and pulmonary vasculature are stable. Stable changes of COPD. No lung consoli dation or pleural effusions are present. IMPRESSION: No acute cardiopulmonary disease is present. And Dictated by: Kylee Samaniego MD on 06/14/2019 5:44 AM. .
[2019-06-14 05:48] LABS: THYROID STIMULATING HORMONE 5.43 uIU/mL (0.270-4.20)
[2019-06-14] MEDS ORDERED: ASPIRIN 81 MG CHEWABLE TABLET PO ONE (06:07)
== END 2019-06-14 06:40 | disposition short-term general hospital (02) ==
LOC: ER 04:48
DX: C91.12 Chronic lymphocytic leukemia of B-cell type in relapse (principal); I50.9 Heart failure, unspecified; J44.9 Chronic obstructive pulmonary disease, unspecified; R23.0 Cyanosis; R79.89 Other specified abnormal findings of blood chemistry; I10 Essential (primary) hypertension; Z85.118 Personal history of other malignant neoplasm of bronchus and lung; Z87.891 Personal history of nicotine dependence
CPT/HCPCS: 71046; 80053; 83880; 84443; 84484; 85027; 85379; 85610; 85730; 93005; 93010; 94640; 96374; 99291; J1940; J7613